=== PATIENT | male | born 1970 | race Caucasian/White ===

== ENCOUNTER → 2019-11-01 | Outpatient (CLI) | payer OTHER ==
[~2019-11-01] MED LIST: PROHANCE 279.3MG/ML 15ML VIAL (A9576) As Ordered ONE; PROHANCE 279.3MG/ML 5ML VIAL (A9576) As Ordered ONE
--- NOTE | 2019-11-07 18:21 | REP ---
MRI LIVER WITH AND WITHOUT CONTRAST: HISTORY: Viral hepatitis. Two hypoechoic liver lesions ultrasound in [place] 07/13/2019. Comparison MRI 03/22/2017. TECHNIQUE: Multiple sequences were obtained in the axial and coronal planes prior to and following the intravenous administration of 20 mL ProHance. The liver is not enlarged. No suspicious liver lesion is seen. There is heterogenous enhancement scattered throughout the right lobe on arterial phase images which quickly demonstrates washout and isointense on more delayed post Gadolinium sequences, most consistent with variable perfusion. The findings are quite similar compared to the prior MRI in 2017. No suspicious liver mass is seen. The spleen is normal in size with no intrinsic abnormality. The adrenal glands appear normal. The pancreas is normal with no pancreatic duct dilatation. There is no common bile duct dilatation. Gallbladder demonstrates no intraluminal filling defect or wall thickening. There is a subcentimeter cyst in the mid left kidney. There is no hydronephrosis. No adenopathy or free fluid is seen in the abdomen. IMPRESSION: No suspicious liver lesion as discussed above. Unreviewed
== END ==
LOC: M RAD 15:33
PROVIDERS: ATTEND Internal Medicine Gastroenterology
DX: B18.1 Chronic viral hepatitis B without delta-agent (principal)
CPT/HCPCS: 74183; A9576

== ENCOUNTER → 2020-03-30 | Outpatient (CLI) | payer OTHER, MEDICAID ==
--- NOTE | 2020-03-30 09:55 | REP ---
RIGHT UPPER QUADRANT SONOGRAPHY: HISTORY: Cirrhosis of the liver. Comparison MRI study November 01, 2019. Comparison sonography images July 13, 2019. SONOGRAPHIC FINDINGS: A coarse hepatic texture is again seen. No focal hepatic nodule or mass lesion is observed. Liver is not felt to be enlarged. Limited views of the pancreas show no abnormality. Common bile duct is normal measuring 0.4 cm in greatest diameter. The gallbladder is normal in size with smooth thin wall and no stone or polyp. The right kidney measures 10.3 x 5.2 x 4.5 cm. No hydronephrosis or other renal lesion seen. IMPRESSION: Coarse hepatic texture consistent with a history of cirrhosis and hepatitis B. No hepatic mass lesion seen. Otherwise negative. Electronically Signed by Emanuel Smith MD 03/30/2020 10:41 A
== END ==
LOC: M RAD 07:54
PROVIDERS: ATTEND Internal Medicine Gastroenterology
DX: K74.60 Unspecified cirrhosis of liver (principal)

== ENCOUNTER → 2021-09-19 | Outpatient (CLI) | payer OTHER, MEDICAID ==
--- NOTE | 2021-09-19 08:37 | REP ---
INDICATION: HEP B, CIRRHOSIS COMPARISON: 03/30/2020 TECHNIQUE: Real time paiz scale ultrasound examination using curved array transducer. FINDINGS: Liver demonstrates coarsened echotexture consistent with hepatocellular disease. No focal hepatic lesion identified. Pancreas is incompletely evaluated due to interposed bowel gas. The gallbladder is normal and without gallstones, wall thickening, or pericholecystic fluid. No biliary ductal dilatation is appreciated and the common bile duct measures 4.0 mm diameter. Right kidney is normal in reniform shape without hydronephrosis and measures 10.8 x 5.5 x 5.6 cm. No ascites in the visualized right upper quadrant. IMPRESSION: Hepatocellular disease. <Electronically signed by Alhaji Teague > 09/19/21 [id number]
== END ==
LOC: M RAD 07:57
PROVIDERS: ATTEND Physician Assistant Medical
DX: K76.89 Other specified diseases of liver (principal); B18.1 Chronic viral hepatitis B without delta-agent; K74.60 Unspecified cirrhosis of liver

== ENCOUNTER → 2022-03-27 | Outpatient (CLI) | payer OTHER, MEDICAID | LOC: M RAD 09:43 | PROVIDERS: ATTEND Internal Medicine Gastroenterology | DX: K74.60 Unspecified cirrhosis of liver (principal) ==

== ENCOUNTER → 2022-09-22 | Outpatient (CLI) | payer OTHER | LOC: M RAD 07:38 | PROVIDERS: ATTEND Internal Medicine Gastroenterology | DX: B18.1 Chronic viral hepatitis B without delta-agent (principal) ==

== ENCOUNTER → 2023-04-10 | Outpatient (CLI) | payer OTHER | LOC: M WHC 07:20 | PROVIDERS: ATTEND Internal Medicine Gastroenterology | DX: B18.1 Chronic viral hepatitis B without delta-agent (principal) ==